=== PATIENT | female | born 1965 | race Caucasian/White ===

== ENCOUNTER 2016-04-06 19:53 | Emergency (ER) | payer BC ==
[~2016-04-06] VITALS: Ht 167.6 cm; Wt 95.1 kg
[~2016-04-06 19:53] MED LIST: ASTNS; BCPILLS PO; FLNIN NAE; HYDC25 PO; LRT5 PO
[2016-04-06 19:55] VITALS: TEMP 36.6; Ht 167.6 cm; Wt 95.1 kg
[2016-04-06] MEDS ORDERED: NORCO 5/325MG HOME PACK PO ONE (20:30)
[2016-04-06 20:44] VITALS: BP 165/85; PULSE 75; O2SAT 100
--- NOTE | 2016-04-07 15:06 | EMERGENCY ROOM VISIT NOTE ---
ED Visit Note First contact with patient: 20:04 CHIEF COMPLAINT: Nose injury today HISTORY OF PRESENT ILLNESS: This 50-year-old female patient presents to the emergency department after they received an injury to the nose to the front of her nose while at home. The patient states she has a large dog that jumped onto the bed, and it accidentally struck her. There was no bleeding from the nares. There was no loss of consciousness, vomiting, or change in behavior after the injury. The nose is swollen and there is constant moderate pain rated as 5/10. The patient denies any change in vision and does not have a headache. REVIEW OF SYSTEMS: A 6 system review of systems was completed with positives and pertinent negatives listed in the HPI. ALLERGIES: NSAIDs MEDICATIONS: No chronic medications PMH: Otherwise healthy. SOCIAL HISTORY: Lives with family. PHYSICAL EXAM: Vital Signs: Reviewed Nurse's notes, Vital signs stable. GENERAL : White female, in no acute distress, well-developed, well-nourished. EYES: PERRLA, EOMs full, no discharge or injection. NOSE: The bridge of the nose is swollen and tender but the skin is intact. It is not displaced significantly. There is no dried blood in the bilateral nares. There is no active bleeding or septal hematoma. FACE: No tenderness around the orbits or sinuses. NECK: Supple, cervical spine is nontender, no lymphadenopathy. HEAD: Atraumatic, without temporal or scalp tenderness. NEUROLOGICAL: The patient is alert and oriented to person place and time. Sensory and motor functions grossly intact, normal gait, cooperative and appropriate. EMERGENCY DEPARTMENT COURSE: physical exam and history were performed. Nursing notes and EMR were reviewed. The patient appears to have suffered a contusion to her nose. There is no significant bleeding or septal hematoma. There is no significant facial injury appreciated. The patient will be treated conservatively with ice and a short course of Vicodin. I did recommend she follow with ENT if she has concerns regarding the cosmetics. She was otherwise invited back to the ER with any new, worsening, or concerning symptoms. Current/Historical Medications Scheduled Azelastine Hcl (Astelin Nasal [place] *), 1-2 SPRAYS NA BID Fluticasone Propionate (Flonase Nasal [place] *), 2 SPRAYS ADELAIDA DAILY Allergies Coded Allergies: NSAIDs (Verified Allergy, Intermediate, Stomach Ulcers, 04/06/16) Penicillins (Verified Allergy, Intermediate, Hives, 04/06/16) Naproxen (Unverified Adverse Reaction, Mild, STOMACH ULCERS, 04/06/16) Vital Signs Date Time Temp Pulse Resp B/P Pulse Ox O2 Delivery O2 Flow Rate FiO2 04/06/16 20:44 75 20 165/85 100 04/06/16 19:55 36.6 65 20 170/95 96 Room Air Medications Administered Medications (Trade) Dose Ordered Sig/Shravan Route Start Time Stop Time Status Last Admin Dose Admin Acetaminophen/ Hydrocodone Bitart (Conesus 5/325mg Home Pack) 1 homepack UD ONCE PO 04/06/16 20:30 04/06/16 20:31 DC 04/06/16 20:32 1 HOMEPACK Departure Information Impression Primary Impression: Nasal injury Dispostion Home / Self-Care Condition FAIR Referrals Federico Barnett D.O. Forms HOME CARE DOCUMENTATION FORM, IMPORTANT VISIT INFORMATION Patient Instructions My [facility] Additional Instructions You were seen and evaluated today on an emergency basis only. This is not a substitute for, or an effort to provide, complete comprehensive medical care. It is not possible to recognize and treat all injuries or illnesses in a single emergency department visit. For this reason it is recommended that you followup with ENT, Dr. Barnett's office, in the next 2 weeks for recheck. Conesus (hydrocodone/acetaminophen) 5/325 mg (homepack) every 6 hours as needed for worsening breakthrough pain. Do not drink or drive on Conesus. This medication will likely make you tired. Do not take Conesus and Tylenol at the same time as both contain acetaminophen. Conesus may cause constipation. You may wish to take an [id number] stool softener like Colace if this occurs. You are welcome to return to the emergency department anytime with new, worsening, or concerning symptoms.
== END 2016-04-06 20:46 | disposition home or self-care (01) ==
LOC: C.EDB 19:53 → C.EDD 20:46
DX: S09.92XA Unspecified injury of nose, initial encounter (principal); W55.82XA Struck by other mammals, initial encounter; Y92.013 Bedroom of single-family (private) house as the place of occurrence of the external cause

== ENCOUNTER → 2016-12-24 | Outpatient (CLI) | payer BC ==
[~2016-12-24] MED LIST changes: -BCPILLS PO; -HYDC25 PO; -LRT5 PO
== END | disposition home or self-care (01) ==
LOC: C.LAB 17:15
PROVIDERS: ATTEND Nurse Practitioner Adult Health
DX: N39.0 Urinary tract infection, site not specified (principal)

== ENCOUNTER → 2017-01-07 | Outpatient (CLI) | payer BC | END | disposition home or self-care (01) | LOC: C.LAB 15:01 | PROVIDERS: ATTEND Urology | DX: N39.0 Urinary tract infection, site not specified (principal) ==

== ENCOUNTER → 2017-03-04 | Outpatient (CLI) | payer BC ==
--- NOTE | 2017-03-05 13:25 | MAMMOGRAPHY REPORT ---
BILATERAL DIGITAL SCREENING MAMMOGRAM TOMOSYNTHESIS WITH CAD: 03/04/2017 CLINICAL HISTORY: Routine screening. Patient has no complaints. TECHNIQUE: Breast tomosynthesis in addition to standard 2D mammography was performed. Current study was also evaluated with a Computer Aided Detection (CAD) system. COMPARISON: Comparison is made to exams dated: 12/23/2015 mammogram, 12/18/2014 mammogram, 12/14/2013 mammogram, 09/28/2012 mammogram, 09/28/2011 mammogram, and 09/24/2010 mammogram - [facility] [place]. BREAST COMPOSITION: There are scattered areas of fibroglandular density in both breasts. FINDINGS: No suspicious masses, calcifications, or areas of architectural distortion are noted in ei ther breast. There has been no significant interval change compared to prior exams. IMPRESSION: ACR BI-RADS CATEGORY 1: NEGATIVE There is no mammographic evidence of malignancy. A 1 year screening mammogram is recommended. The pa tient will receive written notification of the results. Approximately 10% of breast cancers are not detected with mammography. A negative mammographic report should not delay biopsy if a clinically suggestive mass is present. Dee Cook M.D. /:03/04/2017 15:24:31 Svp Chief Marketing Officer: Hollie TOWNSEND([place])([place]), [facility] [place] letter sent: Normal 1/2 BI-RADS Code: ACR BI-RADS Category 1: Negative
== END | disposition home or self-care (01) ==
LOC: C.MAMM 12:58
PROVIDERS: ATTEND Family Medicine
DX: Z12.31 Encounter for screening mammogram for malignant neoplasm of breast (principal)

== ENCOUNTER → 2017-04-07 | Outpatient (CLI) | payer BC | END | disposition home or self-care (01) | LOC: C.LABSPEC 17:14 | PROVIDERS: ATTEND Nurse Practitioner Adult Health | DX: N39.41 Urge incontinence (principal) ==

== ENCOUNTER → 2017-09-30 | Outpatient (CLI) | payer BC | END | disposition home or self-care (01) | LOC: C.LAB 16:33 | PROVIDERS: ATTEND Urology | DX: N39.0 Urinary tract infection, site not specified (principal); N39.41 Urge incontinence ==